=== PATIENT | female | born 1945 | race Caucasian/White ===

== ENCOUNTER 2023-05-13 10:35 | Outpatient (REF) | payer BC, SELFPAY ==
--- NOTE | ~2023-05-13 | XR_ITS ---
EXAMINATION: XR SINUSES CLINICAL INFORMATION: Sinusitis COMPARISON: None available. TECHNIQUE: 3 views of the sinuses were obtained. FINDINGS: Visualized paranasal sinuses appear clear. No air-fluid levels. Dental hardware is noted. XR/XR sinus min 3V IMPRESSION: Visualized paranasal sinuses appear clear. If clinical concern for sinusitis persists, CT sinuses be more sensitive for evaluation.
== END 2023-05-13 10:36 | disposition home or self-care (01) ==
LOC: HO.XRAY 10:35
PROVIDERS: PCP Physician Assistant; Visit Provider Otolaryngology
DX: J32.9 Chronic sinusitis, unspecified (principal)
CPT/HCPCS: 70220